=== PATIENT | male | born 1935 | race Caucasian/White ===

== ENCOUNTER 2021-06-15 15:39 | Outpatient (CLI) | payer MEDICARE ==
[2021-06-09 08:37] LABS: SARS-CoV-2 PCR by NAA Not Detected (NotDetected)
[2021-06-15 23:11] LABS: SARS-CoV-2 PCR by NAA Not Detected (NotDetected)
== END 2021-06-15 15:40 | disposition home or self-care (01) ==
LOC: LABBT 15:39
PROVIDERS: ATTEND Family Medicine
DX: Z01.812 Encounter for preprocedural laboratory examination (principal); Z20.822 Contact with and (suspected) exposure to COVID-19
CPT/HCPCS: U0003; U0005

== ENCOUNTER 2021-06-17 13:03 | Outpatient (CLI) | payer MEDICARE | END 2021-06-17 13:04 | disposition home or self-care (01) | PROVIDERS: ATTEND Otolaryngology Otolaryngic Allergy | DX: R13.12 Dysphagia, oropharyngeal phase (principal); R63.30 Feeding difficulties, unspecified; R13.13 Dysphagia, pharyngeal phase | CPT/HCPCS: 74230 ==